=== PATIENT | male | born 1965 | race American Indian/Alaskan Native ===

== ENCOUNTER → 2018-09-06 | Outpatient (CLI) | payer OTHER | LOC: GIMAGING 09:02 → EDSTATUS 16:23 | PROVIDERS: ATTEND Family Medicine | DX: M54.9 Dorsalgia, unspecified (principal); Z87.81 Personal history of (healed) traumatic fracture | CPT/HCPCS: 72170-PO ==

== ENCOUNTER → 2018-11-28 | Outpatient (CLI) | payer OTHER | LOC: GIMAGING 09:29 → EDSTATUS 13:08 | PROVIDERS: ATTEND Family Medicine | DX: M89.9 Disorder of bone, unspecified (principal); M25.561 Pain in right knee; M25.562 Pain in left knee | CPT/HCPCS: 73564-PO ==